=== PATIENT | female | born 1975 | race Caucasian/White ===

== ENCOUNTER 2019-02-15 19:20 | Emergency (ER) | payer SELFPAY ==
[~2019-02-15] VITALS: Ht 162.6 cm; Wt 103.4 kg
[2019-02-15 19:33] VITALS: BP 125/79
--- NOTE | 2019-02-15 19:35 | NUR ---
TO LOBBY A/W BED, VSHelen, JIMBO, INES NOTED
--- NOTE | 2019-02-15 20:05 | NUR ---
pt ambulated to bed 1
--- NOTE | 2019-02-15 20:17 | NUR ---
PT BIB SELF FOR LEFT FLANK PAIN 8/10 FOR 1 WEEK. AFEBRILE. TOOK ANTACIDS AND CIPRO FOR PAIN. REPORTS NVD AND LOOSE STOOLS. FREQUENT URINATION NOTED. AOX4. EVEN UNLABORED BREATHING. BOWEL SOUNDS ACTIVE X 4 QUADRANTS. DENIES RX DENIES HX. BED IN LOWEST POSITION SR UP X4. WILL CONTINUE TO MONITOR.
[2019-02-15 20:36] LABS: BASOPHILS # (AUTO) 0.1 K/uL (0.00-0.22); BASOPHILS % (AUTO) 0.5 % (0.0-2.0); EOSINOPHILS # (AUTO) 0.2 K/uL (0-0.4); EOSINOPHILS % (AUTO) 1.8 % (0.0-4.0); HEMOGLOBIN 12.7 g/dL (12.0-16.0); LYMPHOCYTES # (AUTO) 2.9 K/uL (2.5-16.5); LYMPHOCYTES % (AUTO) 25.4 % (20.5-51.1); MEAN CORPUSCULAR HEMOGLOBIN 26 pg (27-31); MEAN CORPUSCULAR HGB CONC 33 g/dL (33-37); MEAN CORPUSCULAR VOLUME 79.8 fL (80-94); MONOCYTES # (AUTO) 0.8 K/uL (0.8-1.0); MONOCYTES % (AUTO) 7.4 % (1.7-9.3); NEUTROPHILS # (AUTO) 7.3 K/uL (1.8-7.7); NEUTROPHILS % (AUTO) 64.9 % (42.2-75.2); PLATELET COUNT (AUTO) 241 K/uL (140-450); RED BLOOD CELL COUNT(AUTO) 4.88 MIL/uL (4.20-5.40); RED CELL DISTRIBUTION WIDTH 15.9 % (11.6-13.7); WHITE BLOOD COUNT (AUTO) 11.3 K/uL (4.8-10.8)
[2019-02-15 20:38] LABS: ANION GAP 13.3 (8-16); CARBON DIOXIDE 28.6 mmol/L (21-32); CREATININE 0.9 mg/dL (0.6-1.3); POTASSIUM 3.9 mmol/L (3.5-5.1)
[2019-02-15 20:45] LABS: ALBUMIN 3.4 g/dL (3.4-5.0); TOTAL BILIRUBIN 0.3 mg/dL (0.0-1.0)
[2019-02-15 20:50] LABS: APPEARANCE,URINE CLEAR (CLEAR); BILIRUBIN,URINE NEGATIVE (NEGATIVE); BLOOD, URINE NEGATIVE (NEGATIVE); COLOR,URINE YELLOW (YELLOW); LEUKOCYTE ESTERASE ,URINE NEGATIVE (NEGATIVE); NITRITE, URINE NEGATIVE (NEGATIVE); UGLUCOSE NEGATIVE (NEGATIVE)
[2019-02-15] MEDS ORDERED: DICYCLOMINE 20 MG/2 ML VIAL IM ONE (21:10)
[2019-02-15] MEDS ORDERED: KETOROLAC 30 MG/ML VIAL IM ONE (21:10)
--- NOTE | 2019-02-15 21:54 | NUR ---
Dr. López evaluating patient at bedside.
[2019-02-15 21:58] VITALS: BP 125/79
--- NOTE | 2019-02-15 21:59 | NUR ---
Patient discharged with v/s stable. Written and verbal after care instructions given and explained. Patient alert, oriented and verbalized understanding of instructions. Ambulatory with steady gait. All questions addressed prior to discharge. ID band removed. Patient advised to follow up with PMD. Rx of BENTYL AND COLACE given. Patient educated on indication of medication including possible reaction and side effects. Opportunity to ask questions provided and answered.
== END 2019-02-15 21:59 | disposition home or self-care (01) ==
LOC: MED 19:20
DX: R10.9 Unspecified abdominal pain (principal); R35.0 Frequency of micturition; R19.7 Diarrhea, unspecified; Z90.49 Acquired absence of other specified parts of digestive tract; Z88.5 Allergy status to narcotic agent
CPT/HCPCS: 36415; 74176; 80053; 81003; 81025; 83690; 85025; 93005; 96372; 99284; J0500; J1885

== ENCOUNTER 2022-07-10 14:30 | Emergency (ER) | payer OTHER ==
[~2022-07-10] VITALS: Ht 165.1 cm; Wt 111.1 kg
[2022-07-10 14:50] VITALS: BP 135/94
[2022-07-10] MEDS ORDERED: IBUPROFEN 600 MG TAB PO ONE (15:10)
[2022-07-10] MEDS ORDERED: IBUP-2213 PO (15:28)
--- NOTE | 2022-07-10 15:32 | NUR ---
PANCHO TAPE PLACED TO R FOOT 4/5 DIGIT AND ORTHO SHOE PLACED TO R FOOT. + CMS AFTER APPLICATION
--- NOTE | 2022-07-10 15:50 | NUR ---
47/F C/O RIGHT FOOT PAIN SINCE SUNDAY S/P HITTING HER FOOT ON THE CORNER OF A CHAIR. STATES BRUISING AND SWELLING WORSENING SINCE, PATIENT AMBULATORY UPON ARRIVAL. A&OX4, SKININTACT, VITALS WNL, AND LIMP. PMH: DENIES ALLERGIES: CODEINE
[2022-07-10 16:12] VITALS: BP 135/94
== END 2022-07-10 16:12 | disposition home or self-care (01) ==
LOC: MED 14:30
DX: S92.911A Unspecified fracture of right toe(s), initial encounter for closed fracture (principal); R03.0 Elevated blood-pressure reading, without diagnosis of hypertension; Z88.5 Allergy status to narcotic agent; X58.XXXA Exposure to other specified factors, initial encounter; Y93.89 Activity, other specified; Y92.89 Other specified places as the place of occurrence of the external cause; Y99.8 Other external cause status
CPT/HCPCS: 73630; 99283